=== PATIENT | female | born 1980 | race Two or more races ===

== ENCOUNTER 2023-07-12 09:40 | Outpatient (CLI) | payer OTHER | END 2023-07-12 09:42 | disposition home or self-care (01) | LOC: SONOGRAMA 09:40 | PROVIDERS: ATTEND Pathology Anatomic Pathology & Clinical Pathology | DX: D11.0 Benign neoplasm of parotid gland (principal); D37.030 Neoplasm of uncertain behavior of the parotid salivary glands ==